=== PATIENT | female | born 1970 | race Caucasian/White ===

== ENCOUNTER 2023-01-27 15:17 | Outpatient (CLI) | payer MEDICAID, SELFPAY | END 2023-01-27 15:18 | disposition home or self-care (01) | PROVIDERS: PCP Family Medicine; Visit Provider Family Medicine | DX: Z00.00 Encounter for general adult medical examination without abnormal findings (principal); R63.5 Abnormal weight gain; R60.0 Localized edema; Z13.6 Encounter for screening for cardiovascular disorders; Z11.59 Encounter for screening for other viral diseases; Z13.29 Encounter for screening for other suspected endocrine disorder; R21 Rash and other nonspecific skin eruption; J44.9 Chronic obstructive pulmonary disease, unspecified | CPT/HCPCS: 80053; 80061; 84443; 86039; 86803; 87086 ==

== ENCOUNTER 2023-02-03 13:14 | Outpatient (CLI) | payer MEDICAID, SELFPAY ==
--- NOTE | 2023-02-03 13:30 | CRLHL7_ITS ---
For Patients: As a result of the Century Cures Act, medical imaging exams and procedure reports are released immediately into your electronic medical record. You may view this report before your referring provider. If you have questions, please contact your health care provider. DXA BONE MINERAL DENSITY STUDY Current height (in): 63.0. Weight (lb): 177.0. Menopause age: 43. Ethnicity: White. Reason for exam: Fracture of bone. 1. Have you had a previous hip or vertebral fracture? Yes. 2. Have you had any fractures during your adult life which did not result from significant trauma (e.g., auto accident)? Yes. 3. Did either of your parents have a hip fracture? Yes. 4. Do you smoke? Yes. 5. Have you ever taken Glucocorticoids? No. 6. Do you have rheumatoid arthritis? Yes. 7. Do you have secondary osteoporosis? No. 8. Do you drink 3 or more alcoholic drinks per day? No. 9. Are you being treated for osteoporosis? No. 10. Have you ever taken any of the following medications: Actonel, Evista, Fosamax, Miacalcin, Reclast, Boniva, Forteo, HRT (i.e. estrogen/hormone therapy), Protelos, Prolia, Vitamin D, Calcium, other ??? please specify. ANSWER: No. 11. Do you have any of the following medical conditions: Anorexia or bulimia, asthma or emphysema, end stage renal disease, hyperparathyroidism, any seizure disorders, cancer, inflammatory bowel diseases, hysterectomy, other ??? please specify. ANSWER: Yes, asthma. 12. What was your maximum height (inches)? 63. 13. Do you perform weight bearing exercise regularly? No. 14. Do you regularly consume dairy products? No. 15. Do you drink caffeinated beverages? Yes. 16. At what age did your period start? 14. 17. Are you premenopausal? No. 18. How many full term pregnancies have you had? 1. 19. Have you ever missed your period for more than 6 months in a row (not including or menopause)? No. TECHNIQUE: Bone mineral density study was performed using the [employer]. FINDINGS: The results of the study expressed as bone mineral density (BMD) are as follows: Neck Left: BMD: 0.650 g/cm2. T-score: -1.8. Z-score: -0.8. Total Left: BMD: 0.824 g/cm2. T-score: -1.0. Z-score: -0.3. Radius Right 33%: BMD: 0.590 g/cm2. T-score: -1.7. Z-score: -0.8. Radius Left 33%: BMD: 0.656 g/cm2. T-score: -0.6. Z-score: 0.3. IMPRESSION: Osteopenia. Jeremy Salinas M.D. Diagnostic Radiologist [email or web address] Transcribed: 1:40 pm DW/Dictated by: Jeremy Salinas MD @ 02/04/2023 1:05:00 PM (Electronically Signed)
== END 2023-02-03 13:15 | disposition home or self-care (01) ==
LOC: RAD 13:16
PROVIDERS: PCP Family Medicine; Visit Provider Family Medicine
DX: M85.80 Other specified disorders of bone density and structure, unspecified site (principal); Z87.81 Personal history of (healed) traumatic fracture
CPT/HCPCS: 77080

== ENCOUNTER 2023-02-04 12:35 | Outpatient (CLI) | payer MEDICAID, SELFPAY | END 2023-02-04 12:36 | disposition home or self-care (01) | LOC: RAD 12:36 | PROVIDERS: PCP Family Medicine; Visit Provider Family Medicine | DX: R60.0 Localized edema (principal) | CPT/HCPCS: 93306 ==

== ENCOUNTER 2024-01-27 10:16 | Outpatient (CLI) | payer MEDICAID, SELFPAY | END 2024-01-27 10:17 | disposition home or self-care (01) | LOC: NFLDREF 01-30 06:45 | PROVIDERS: PCP Family Medicine; Referring Provider Family Medicine; Visit Provider Family Medicine | DX: R63.5 Abnormal weight gain (principal) | CPT/HCPCS: 80053; 80061; 84443 ==

== ENCOUNTER 2024-06-01 14:31 | Outpatient (CLI) | payer MEDICAID, SELFPAY | END 2024-06-01 14:32 | disposition home or self-care (01) | PROVIDERS: PCP Family Medicine; Visit Provider Family Medicine | DX: R42 Dizziness and giddiness (principal); G43.909 Migraine, unspecified, not intractable, without status migrainosus; R41.3 Other amnesia | CPT/HCPCS: 80053; 82607; 82746; 84443 ==

== ENCOUNTER 2024-06-06 17:34 | Outpatient (CLI) | payer MEDICAID, SELFPAY ==
--- NOTE | 2024-06-06 18:15 | CRLHL7_ITS ---
For Patients: As a result of the Century Cures Act, medical imaging exams and procedure reports are released immediately into your electronic medical record. You may view this report before your referring provider. If you have questions, please contact your health care provider. INDICATION: Migraine headache. TECHNIQUE: Sagittal T1, axial FLAIR T2 diffusion-weighted susceptibility weighted and gadolinium-enhanced multiplanar MRI imaging of the brain. FINDINGS: None the ventricles normal in size and configuration. No evidence of acute ischemic infarction. No areas of destruction no evidence of intracranial hemorrhage. No subdural fluid collections. Few scattered subcentimeter foci of FLAIR/T2 hyperintensity within the supratentorial white matter that are nonspecific. These findings would be consistent with chronic microvascular ischemia or changes related to migraine. No enhancing intra-axial or extra-axial lesion. The brainstem and cerebellum appear normal. The no post orbital or suprasellar lesion. There is mild mucosal thickening at the base the right maxillary antrum. IMPRESSION: 1. No evidence of acute intracranial abnormality. 2. Few small nonenhancing signal changes within cerebral white matter are nonspecific but consistent with migraine and/or chronic microvascular ischemia. Dictated by Marco Fay MD @ 06/07/2024 6:22:51 AM (Electronically Signed)
== END 2024-06-06 17:35 | disposition home or self-care (01) ==
LOC: MRI 17:35
PROVIDERS: PCP Family Medicine; Visit Provider Family Medicine
DX: G43.909 Migraine, unspecified, not intractable, without status migrainosus (principal); R51.9 Headache, unspecified; R41.3 Other amnesia; R42 Dizziness and giddiness; Z80.8 Family history of malignant neoplasm of other organs or systems
CPT/HCPCS: 70553; A9575

== ENCOUNTER 2024-10-30 11:06 | Outpatient (CLI) | payer MEDICAID, SELFPAY ==
--- NOTE | 2024-11-08 16:17 | ONC.NURNOTE ---
Patient was referred to us and information was reviewed with Dr. Cooper. Because vonwildebrand labs came back abnormal, patient should be scheduled via telehealth at NO urgency to discuss these. LMOM for patient to call the office back to schedule.
== END 2024-10-30 11:07 | disposition home or self-care (01) ==
PROVIDERS: PCP Family Medicine; Visit Provider Family Medicine
DX: D69.9 Hemorrhagic condition, unspecified (principal)
CPT/HCPCS: 80053; 82180; 82306; 85240; 85245; 85246; 85384; 85610; 85730

== ENCOUNTER 2024-11-07 09:57 | Outpatient (CLI) | payer MEDICAID, SELFPAY ==
--- NOTE | 2024-11-07 10:15 | CRLHL7_ITS ---
For Patients: As a result of the Century Cures Act, medical imaging exams and procedure reports are released immediately into your electronic medical record. You may view this report before your referring provider. If you have questions, please contact your health care provider. 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 Fluoroscopic time 1.32 minutes. COMPARISON: None FINDINGS/IMPRESSION: No aspiration or laryngeal penetration. No obstruction. Delayed transit of contrast through the esophagus into the stomach. Delayed transit of barium tablet as well through the GE junction. Dictated by Jeremy Salinas MD @ 11/07/2024 11:49:19 AM (Electronically Signed)
--- NOTE | 2024-11-07 16:10 | SLP.MBS ---
BEADER TENDER Modified Barium Swallow BEADER TENDER Modified Barium Swallow Eval Start: 11/07/24 14:08 Text: Status: Active Freq: Protocol: Document 11/07/24 14:08 JEFF (Rec: 11/07/24 14:38 JEFF [id number]) E-signed By ASHLEY Castro Modified Barium Swallow Evaluation Evaluation Reason for Referral Patient referred for an outpatient video swallow study due to complaints of pain when swallowing, belching, or hiccuping and sometimes a feeling of food getting stuck. Medical Diagnosis T17.308A choking; R13.10 dysphagia Treatment Diagnosis dysphagia Date of Order 10/30/24 Type of Referral Evaluation Onset of Patient's Problem Patient reports dysphagia symptoms have been occurring for about 1-2 months. Pertinent Medical History PMH includes COPD, choking, dysphagia, GERD, memory loss, and headaches. Medications Patient is taking 40mg omeprazole daily in the morning. Hearing Status WNL Vision Status Glasses Subjective/Pain Comment Patient alert and cooperative. She reports painful swallowing and points to the sternal area of her chest. It is painful, not burning and occurs more with solids than liquids. She has difficulty with larger pills and reports choking a few times on pills. Assessment/Impressions ASSESSMENT Oral [facility] exam unremarkable. Trials of thin, puree, solid and barium tablet were administered under fluoroscopy in both lateral and A/P views . Thin: (order of presentation 1 cup; 2 consecutive swallows; 3 consecutive swallows from straw; 9 A/P view; self-fed). Oral phase: Adequate acceptance and oral containment with good oral control and no oral residue. Pharyngeal phase: Timely swallow with good hyolaryngeal elevation. No penetration or aspiration and no pharyngeal residue. Puree: (order of presentation; self-fed, fed by clinician); Oral phase: Adequate acceptance and oral containment with good oral control and no oral residue. Pharyngeal phase: Timely swallow with good hyolaryngeal elevation. No penetration or aspiration and no pharyngeal residue. Solid: (order of presentation; self-fed, fed by clinician); Oral phase: Adequate acceptance and oral containment with good oral control and no oral residue. Pharyngeal phase: Timely swallow with good hyolaryngeal elevation. No penetration or aspiration and no pharyngeal residue. Small osteophytes noted but did not impact pharyngeal transit through the pharynx. Barium tablet: slow passage through esophagus. Please see radiology report for details. IMPRESSION Video swallow study was completed per provider orders. Patient presents with a functional oropharyngeal swallow. Oral and pharyngeal phase of the swallow intact. Esophageal sweep revealed Delayed transit of contrast through the esophagus into the stomach. Delayed transit of barium tablet as well through the GE junction. Recommend continue with a regular diet with thin liquids. Safe swallow strategies include upright for all po, small bites/sips, slow rate of intake. Pills should be taken one at a time with liquid and for larger pills, she could consult with her pharmacy to determine if they could be reduced in size (i.e. take two small pills rather than one large). Reflux precautions include stay upright for one hour after meals, smaller more frequent meals, eat last meal three hours before bedtime and elevate HOB. Patient does have an appointment with GI set up for 11/09/24 which will be beneficial to further assess the esophageal phase of the swallow. Goals/Functional Outcomes Patient will verbalize understanding of evaluation results and recommendations. Goal met 11/07/24. Modified Barium Swallow Education Education Topics Teaching Recipient Patient,Family Teaching Methods Verbal,Written Response to Teaching Verbalize Understanding Therapist Signature/License Number Talon Miner MS CCC-BEADER TENDER # [id number] Speech/Language Pathology Billing Units Billing Units Eval Swallow Motion Fluoro 1
== END 2024-11-07 09:58 | disposition home or self-care (01) ==
LOC: RAD 09:59
PROVIDERS: PCP Family Medicine; Visit Provider Family Medicine
DX: R13.10 Dysphagia, unspecified (principal); T17.308A Unspecified foreign body in larynx causing other injury, initial encounter
CPT/HCPCS: 74230; 92611

== ENCOUNTER 2025-04-16 13:30 | Outpatient (RCR) | payer MEDICAID, SELFPAY ==
[2024-11-22 11:38] LABS: Hematocrit 33.1 % (33.0-51.0); Hemoglobin* 10.8 gm/dL (12.0-16.0); Immature Granulocytes Abs Auto 0.01 K/uL (0.00-0.30); Immature Granulocytes Pct Auto 0.1 %; Lymphocytes Absolute Auto 2.12 K/uL (0.90-2.90); Mean Corpuscular HGB Conc 33 gm/dL (32-36); Mean Corpuscular Hemoglobin 32 pg (26-34); Mean Corpuscular Volume 97 fL (80-100); RDW Coefficient of Variation % 13.0 % (11.5-15.5); Red Blood Count 3.42 m/uL (4.00-5.20); White Blood Count* 8.57 K/uL (4.50-11.00)
[2024-11-22 11:50] LABS: Slide Review Reflex No
[2024-11-22 12:32] LABS: Iron* 55 ug/dL (37-170)
[2024-11-22 12:42] LABS: Percent Iron Saturation 25 % (20-50); Total Iron Binding Capacity 225 ug/dL (265-497)
[2024-11-22 12:43] LABS: Vitamin B12* 378 pg/mL (243-894)
[2025-03-12 13:20] LABS: Hematocrit 36.1 % (33.0-51.0); Hemoglobin* 11.5 gm/dL (12.0-16.0); Immature Granulocytes Abs Auto 0.01 K/uL (0.00-0.30); Immature Granulocytes Pct Auto 0.1 %; Lymphocytes Absolute Auto 2.05 K/uL (0.90-2.90); Mean Corpuscular HGB Conc 32 gm/dL (32-36); Mean Corpuscular Hemoglobin 32 pg (26-34); Mean Corpuscular Volume 99 fL (80-100); RDW Coefficient of Variation % 12.9 % (11.5-15.5); Red Blood Count 3.64 m/uL (4.00-5.20); White Blood Count* 8.36 K/uL (4.50-11.00)
[2025-03-12 13:44] LABS: Slide Review Reflex No
[2025-03-12 15:12] LABS: Vitamin B12* 959 pg/mL (243-894)
[2025-03-14 15:40] LABS: Vitamin C, Plasma 7 umol/L (23-114)
[2025-04-09 14:21] LABS: Hematocrit 35.4 % (33.0-51.0); Hemoglobin* 11.4 gm/dL (12.0-16.0); Immature Granulocytes Abs Auto 0.01 K/uL (0.00-0.30); Immature Granulocytes Pct Auto 0.1 %; Lymphocytes Absolute Auto 2.32 K/uL (0.90-2.90); Mean Corpuscular HGB Conc 32 gm/dL (32-36); Mean Corpuscular Hemoglobin 32 pg (26-34); Mean Corpuscular Volume 98 fL (80-100); RDW Coefficient of Variation % 13.0 % (11.5-15.5); Red Blood Count 3.60 m/uL (4.00-5.20); White Blood Count* 8.62 K/uL (4.50-11.00)
[2025-04-09 14:23] LABS: Slide Review Reflex No
[2025-04-13 10:15] LABS: Vitamin C, Plasma 26 umol/L (23-114)
== END 2025-05-19 23:59 | disposition home or self-care (01) ==
LOC: CCIC 13:30
PROVIDERS: PCP Family Medicine; Referring Provider Family Medicine; Visit Provider Internal Medicine Hematology & Oncology
DX: D51.9 Vitamin B12 deficiency anemia, unspecified (principal); D69.6 Thrombocytopenia, unspecified; E87.6 Hypokalemia
CPT/HCPCS: 36415; 82180; 82607; 82728; 83540; 83550; 84597; 85025; 85130; 85240; 85250; 85576; 88184; 88185; 99202; 99204; 99213; 99214; G0463

== ENCOUNTER 2025-05-16 13:14 | Outpatient (CLI) | payer MEDICAID, SELFPAY | END 2025-05-16 13:15 | disposition home or self-care (01) | PROVIDERS: PCP Family Medicine; Visit Provider Family Medicine | DX: D51.9 Vitamin B12 deficiency anemia, unspecified (principal); E54 Ascorbic acid deficiency; E55.9 Vitamin D deficiency, unspecified; R03.0 Elevated blood-pressure reading, without diagnosis of hypertension; R60.0 Localized edema; J44.9 Chronic obstructive pulmonary disease, unspecified | CPT/HCPCS: 80053; 80061; 82043; 82180; 82306; 82570; 82607; 83880 ==